=== PATIENT | male | born 1975 | race Asian ===

== ENCOUNTER 2020-09-24 08:15 | Emergency (ER) | payer BC, OTHER ==
[~2020-09-24] VITALS: Ht 167.6 cm; Wt 80.7 kg
--- NOTE | 2020-09-24 09:01 | NUR ---
Patient discharged to home in stable condition. Written and verbal after care instructions given. Patient verbalizes understanding of instructions. Stressed follow up or return to ER for worsening s/s.
== END 2020-09-24 09:03 | disposition home or self-care (01) ==
LOC: ER 08:15
DX: U07.1 COVID-19 (principal); R50.9 Fever, unspecified; R03.0 Elevated blood-pressure reading, without diagnosis of hypertension
CPT/HCPCS: 99283; U0003; A4663